=== PATIENT | female | born 1980 | race Caucasian/White ===

== ENCOUNTER → 2019-07-04 | Day surgery (SDC) | payer BC ==
--- NOTE | 2019-07-05 10:23 | PATH ---
Surgical Pathology Report Patient Name: MICAELA ROMAN [facility]. Rec. #: [id number] /Age/Gender: 1980 (Age: 39) / F Account: [id number] Location: RADIOLOGY [facility] Taken: 07/04/2019 Received: 07/04/2019 Reported: 07/05/2019 Physicians: Pita Huffman M.D. Specimen(s) Received RIGHT BREAST 1.00 Clinical History Non-palpable lesion Mammographic findings: probably benign Ultrasound findings: Probably benign 0.8 cm mass Final Diagnosis BREAST, RIGHT, 1:00, ULTRASOUND GUIDED CORE BIOPSY: FIBROADENOMA AND ASSOCIATED RARE MICROCALCIFICATIONS. Electronically Signed Natalia Marrufo M.D. Gross Description Received in formalin labeled "right breast 1:00" are 5 bass-yellow, cylindrical portions of fibroadipose tissue ranging from 0.4-1.2 cm in length and averaging 0.2 cm diameter. The specimens are submitted in toto in one cassette. Time to formalin fixation: <1 minute Total formalin fixation time: Between 6-7 hours.
== END | disposition home or self-care (01) ==
LOC: JMAMMO-SUR 11:33
PROVIDERS: ATTEND Nurse Practitioner Family
PROC: 0HBT3ZX Excision of Right Breast, Percutaneous Approach, Diagnostic (ICD-10-PCS; principal; 2019-07-04)
DX: D24.1 Benign neoplasm of right breast (principal)
CPT/HCPCS: 19083; 77065-TC; 87899; 88305-TC; A4648

== ENCOUNTER 2024-12-03 16:29 | Emergency (ER) | payer BC, OTHER ==
[2024-12-03 16:36] VITALS: TEMP 98.6; BMI 28.3
[2024-12-03 18:15] LABS: BASO % 0.4 % (0-2.0); EOS % 1.7 % (0-4.5); HEMATOCRIT 43.6 % (32.4-45.2); HEMOGLOBIN 14.4 GM/dL (10.7-15.3); LYMPH % 16.4 % (8-40); MCH 28.1 pg (25.7-33.7); MEAN CELL VOLUME 85.1 fl (80-96); MEAN PLT VOLUME 6.1 fl (7.5-11.1); NEUT % 74.5 % (42.8-82.8); PLATELET COUNT 329 10^3/uL (134-434); RBC 5.12 M/mm3 (3.60-5.2); RDW 12.8 % (11.6-15.6); WHITE BLOOD COUNT 10.8 K/mm3 (4.0-10.0)
[2024-12-03 18:33] LABS: POTASSIUM 3.4 mmol/L (3.5-5.1)
[2024-12-03 18:35] LABS: CALCIUM 8.9 mg/dL (8.5-10.1)
[2024-12-03 18:36] LABS: BLOOD UREA NITROGEN 8.9 mg/dL (7-18)
[2024-12-03 18:39] LABS: CREATININE 0.8 mg/dL (0.55-1.3)
[2024-12-03 18:40] LABS: BILIRUBIN,TOTAL 0.4 mg/dL (0.2-1); TOT PROT 7.4 g/dl (6.4-8.2)
[2024-12-03] MEDS: SODIUM CHLORIDE 0.9% 500 ML INFUS.BAG IV ONE (19:06)
[2024-12-03 19:54] LABS: INR 0.94 (0.83-1.09); PROTHROMBIN TIME (PATIENT) 10.2 SEC (9.7-13.0)
[2024-12-03 19:56] LABS: ACTIVATED PTT 27.9 SECONDS (25.2-36.5)
[2024-12-03 20:36] VITALS: BP 114/62; PULSE 63; RESP 18
== END 2024-12-03 20:46 | disposition home or self-care (01) ==
LOC: JER 16:29
DX: R00.2 Palpitations (principal); R06.02 Shortness of breath; Z20.822 Contact with and (suspected) exposure to COVID-19
CPT/HCPCS: 0241U-QW; 36415; 71046-TC-FY; 80053; 84443; 84484; 85025; 85379; 85610; 85730; 93005; 93010; 99284-25